=== PATIENT | male | born 1975 | race American Indian/Alaskan Native ===

== ENCOUNTER 2017-03-29 06:52 | Emergency (ER) | payer SELFPAY ==
[2017-03-29 07:08] VITALS: BP 132/80
[2017-03-29 07:25] LABS: Basophils % (Auto) 0.9 % (0.0-1.8); Eosinophils % (Auto) 0.9 % (0.0-4.3); Hematocrit 39.3 % (35.5-45.6); Hemoglobin 13.9 gm/dl (11.8-15.2); Mean Corpuscular HGB Conc 35 % (32-34); Mean Corpuscular Hemoglobin 33 pg (28-32); Mean Corpuscular Volume 92 fl (84-94); Platelet Count 205 K/mm3 (140-440); Red Blood Count 4.28 M/mm3 (3.65-5.03); Red Cell Distribution Width 14.3 % (13.2-15.2); White Blood Count 8.3 K/mm3 (4.5-11.0)
[2017-03-29 07:41] LABS: Anion Gap 19 mmol/L; BUN/Creatinine Ratio 17.77; Blood Urea Nitrogen 16 mg/dL (9-20); Calcium 8.8 mg/dL (8.4-10.2); Carbon Dioxide 24 mmol/L (22-30); Chloride 98.7 mmol/L (98-107); Glucose 166 mg/dL (75-100); Potassium 4.2 mmol/L (3.6-5.0); Sodium 137 mmol/L (137-145)
--- NOTE | 2017-03-31 16:45 | ED Elopement Review ---
ED Pt Elopement review - Results review Lab results: Laboratory Tests 03/29/17 03/29/17 07:09 07:09 WBC 8.3 RBC 4.28 Hgb 13.9 Hct 39.3 MCV 92 MCH 33 H MCHC 35 H RDW 14.3 Plt Count 205 Lymph % (Auto) 15.8 Cecil % (Auto) 8.9 H Eos % (Auto) 0.9 Baso % (Auto) 0.9 Lymph # 1.3 Cecil # 0.7 Eos # 0.1 Baso # 0.1 Seg Neutrophils % 73.5 H Seg Neutrophils # 6.1 Sodium 137 Potassium 4.2 Chloride 98.7 Carbon Dioxide 24 Anion Gap 19 BUN 16 Creatinine 0.9 Estimated GFR > 60 BUN/Creatinine Ratio 17.77 Glucose 166 H Calcium 8.8 - Call Back decision Pt Call Back Decision: No action required
== END 2017-03-29 17:11 | disposition left against medical advice (07) ==
LOC: ED 06:52
DX: R51 Headache (principal); R11.11 Vomiting without nausea; Z53.21 Procedure and treatment not carried out due to patient leaving prior to being seen by health care provider
CPT/HCPCS: 36415; 80048; 85025

== ENCOUNTER 2017-12-05 22:12 | Emergency (ER) | payer OTHER ==
[2017-12-05 22:30] VITALS: BP 125/79
[2017-12-06] MEDS ORDERED: TYLENOL PO ONE (02:35)
[2017-12-06] MEDS ORDERED: TYLENOL ONE (02:37)
== END 2017-12-06 08:16 | disposition left against medical advice (07) ==
LOC: ED 22:12
DX: Z53.21 Procedure and treatment not carried out due to patient leaving prior to being seen by health care provider (principal)

== ENCOUNTER 2017-12-06 18:23 | Emergency (ER) | payer OTHER ==
[2017-12-06 19:08] VITALS: BP 159/74
== END 2017-12-07 09:04 | disposition left against medical advice (07) ==
LOC: ED 18:23
DX: Z04.1 Encounter for examination and observation following transport accident (principal); Z53.21 Procedure and treatment not carried out due to patient leaving prior to being seen by health care provider; V89.2XXA Person injured in unspecified motor-vehicle accident, traffic, initial encounter; Y93.89 Activity, other specified; Y99.8 Other external cause status; Y92.410 Unspecified street and highway as the place of occurrence of the external cause

== ENCOUNTER 2019-12-20 21:34 | Emergency (ER) | payer SELFPAY ==
[2019-12-20 21:40] VITALS: BP 138/82
== END 2019-12-20 23:00 | disposition left against medical advice (07) ==
LOC: ED 21:34
DX: R03.0 Elevated blood-pressure reading, without diagnosis of hypertension (principal); Z53.21 Procedure and treatment not carried out due to patient leaving prior to being seen by health care provider

== ENCOUNTER 2020-09-24 10:39 | Outpatient (CLI) | payer OTHER ==
--- NOTE | 2020-09-24 12:28 | XRay Report ---
LEFT SHOULDER 3 VIEWS INDICATION / CLINICAL INFORMATION: Left shoulder pain. COMPARISON: None available. FINDINGS: BONES / JOINT(S): There are minimal degenerative changes involving the acromioclavicular joint. There is no evidence of fracture, subluxation or destructive lesion. SOFT TISSUES: No significant abnormality. ADDITIONAL FINDINGS: The visualized left lung is clear. Signer Name: Keyur Currie MD Signed: 09/24/2020 12:24 PM Workstation Name: [id number]
== END 2020-09-24 10:40 | disposition home or self-care (01) ==
LOC: XRAY 10:39
PROVIDERS: ATTEND Internal Medicine
DX: M19.012 Primary osteoarthritis, left shoulder (principal)

== ENCOUNTER 2021-02-18 10:53 | Emergency (ER) | payer SELFPAY ==
[2021-02-18 11:07] VITALS: BP 126/80
[2021-02-18] MEDS ORDERED: METOCLOPRAMIDE 10 MG/2 ML INJ IV ONE (11:39)
[2021-02-18] MEDS ORDERED: diphenhydrAMINE 50 MG/ML VIAL IV ONE (11:39)
[2021-02-18] MEDS ORDERED: SODIUM CHLORIDE 0.9% 1000 ML 1,000 ML IV ONE (11:39)
[2021-02-18] MEDS ORDERED: KETOROLAC 30 MG/1 ML INJ IV ONE (11:39)
[2021-02-18] MEDS ORDERED: dexAMETHasone 20 MG/5 ML VIAL IV ONE (11:40)
--- NOTE | 2021-02-18 11:47 | Event Note ---
ED Screening Note Date of service: 02/18/21 Time: 11:41 ED Screening Note: 45-year-old male with a past medical history of migraines and chronic back pain presents to the ER today with complaints of flareup of his migraine headache. Onset was this past Monday He reports pain to his frontal head, left retro-orbital area and occipital area. He states that he typically gets a flareup like this once a year of his migraine. He has tried tramadol, Excedrin, and Tylenol PM without much relief. He states that he has self-induced vomiting to see if that would relieve his headache. Denies any recent head injury Reports no vision changes, speech changes, focal weakness, numbness, tingling, neck pain, fever or chills This initial assessment/diagnostic orders/clinical plan/treatment(s) is/are subject to change based on patients health status, clinical progression and re- assessment by fellow clinical providers in the ED. Further treatment and workup at subsequent clinical providers discretion. Patient/guardian urged not to elope from the ED as their condition may be serious if not clinically assessed and managed. Initial orders include: Headache cocktail medications
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
== END 2021-02-18 14:29 | disposition home or self-care (01) ==
LOC: ED 10:53
DX: G43.909 Migraine, unspecified, not intractable, without status migrainosus (principal); J45.909 Unspecified asthma, uncomplicated; F17.200 Nicotine dependence, unspecified, uncomplicated; Z79.899 Other long term (current) drug therapy; Z88.8 Allergy status to other drugs, medicaments and biological substances
CPT/HCPCS: 99282; J1100; J1200; J1885; J2765; J7030